=== PATIENT | female | born 1975 | race Caucasian/White ===

== ENCOUNTER 2019-03-01 14:27 | Emergency (ER) | payer BC ==
[2019-03-01 14:47] VITALS: BP 123/47
--- NOTE | 2019-03-01 15:00 | ED ---
Throat Pain/Nasal Congestion - HPI Summary HPI Summary: 43 yr old with left ear pain for about four days. She feels like the ear is plugged up. She did put over the counter herbal drops in the left ear over the weekend. These seem to irritate it more. No other complaints. - History of Current Complaint Chief Complaint: UCEar Time Seen by Provider: 03/01/19 14:44 - Allergies/Home Medications Allergies/Adverse Reactions: Allergies Allergy/AdvReac Type Severity Reaction Status Date / Time MS Nitrofurantoin Allergy Rash Verified 08/13/15 20:02 [From Macrobid] nitrofurantoin Allergy Rash Verified 03/01/19 14:44 [From Macrobid] Home Medications: Home Medications Ibuprofen 400 mg PO Q8HR PRN 03/01/19 [History Confirmed 03/01/19] Oregano Oil [Oil of Oregano] 1,500 mg PO DAILY 03/01/19 [History Confirmed 03/01] PMH/Surg Hx/FS Hx/Imm Hx - Cancer History Hx Chemotherapy: No Hx Radiation Therapy: No - Surgical History Surgery Procedure, Year, and Place: csection. cholecystectomy. surgery for blocked bile duct Infectious Disease History: No Infectious Disease History: Denies: History Other Infectious Disease, Traveled Outside the [place] in Last 30 Days - Family History Known Family History: Positive: None - Social History Occupation: Employed Full-time Alcohol Use: None Substance Use Type: Reports: None Smoking Status (MU): Never Smoked Tobacco Review of Systems Constitutional: Negative Positive: Ear Ache All Other Systems Reviewed And Are Negative: Yes Physical Exam Triage Information Reviewed: Yes Vital Signs On Initial Exam: Initial Vitals Temp Pulse Resp BP Pulse Ox 98.2 F 76 18 123/47 98 03/01/19 14:45 03/01/19 14:45 03/01/19 14:45 03/01/19 14:45 03/01/19 14:45 Vital Signs Reviewed: Yes Appearance: Positive: Well-Appearing, No Pain Distress Skin: Positive: Warm, Skin Color Reflects Adequate Perfusion Head/Face: Positive: Normal Head/Face Inspection Eyes: Positive: EOMI, MJ ENT: Positive: Pharynx normal, TM bulging - left, TM red - left Neck: Positive: Nontender Respiratory/Lung Sounds: Positive: Clear to Auscultation, Breath Sounds Present Cardiovascular: Positive: RRR. Negative: Murmur Abdomen Description: Positive: Nontender Musculoskeletal: Positive: Strength/ROM Intact Neurological: Positive: Sensory/Motor Intact, Alert, Oriented to Person Place, Time, CN Intact II-III Psychiatric: Positive: Normal Diagnostics - Vital Signs Vital Signs Temp Pulse Resp BP Pulse Ox 03/01/19 14:45 98.2 F 76 18 123/47 98 - Laboratory Lab Statement: Any lab studies that have been ordered have been reviewed, and results considered in the medical decision making process. EENT Course/Dx - Course Course Of Treatment: 43 yr old with Left OM. DC home on Augmentin - Diagnoses Provider Diagnoses: Left otitis media Discharge - Sign-Out/Discharge Documenting (check all that apply): Patient Departure All imaging exams completed and their final reports reviewed: No Studies - Discharge Plan Condition: Good Disposition: HOME Prescriptions: Amoxicillin/Clavulanate TAB* [Augmentin TAB 875*] 875 mg PO BID #20 tab Patient Education Materials: Ear Infection (ED) Referrals: Gui Randle MD [Primary Care Provider] - - Billing Disposition and Condition Condition: GOOD Disposition: Home
== END 2019-03-01 15:00 | disposition home or self-care (01) ==
LOC: UCEAST 14:27
DX: H66.92 Otitis media, unspecified, left ear (principal); Z88.1 Allergy status to other antibiotic agents
CPT/HCPCS: 99202; G0463

== ENCOUNTER 2023-10-02 10:16 | Observation (INO) ==
[~2023-10-02 10:16] MED LIST: Naloxone 0.4 mg VIAL 0.4 mg/ml 1 ml VIAL IV PUSH PRN
[2023-10-02] MEDS ORDERED: Ondansetron 4 mg VIAL 2 MG/ML 2 ml VIAL ONE (10:28)
[2023-10-02] MEDS ORDERED: Clindamycin 900 MG/50 **NS BAG 900 MG/50 ML BAG IV ONE (10:30)
[2023-10-02] MEDS ORDERED: Scopolamine 1 mg/72hr PATCH ONE (10:53)
[2023-10-02] MEDS ORDERED: oxyCODONE SR 10 mg TAB ONE (10:53)
[2023-10-02] MEDS ORDERED: Dexamethasone Oral Solution 1 MG/ML 10 ML UDC (10 MG) PO ONE (11:00)
[2023-10-02 11:12] LABS: Activated Partial Thrombo Time 27.7 seconds (26.0-38.0); INR 0.99 (0.83-1.13)
[2023-10-02 11:20] LABS: Anion Gap 9 mmol/L (2-16); Blood Urea Nitrogen 14 mg/dL (6-24); CO2 Carbon Dioxide 24 mmol/L (22-32); Calcium 8.9 mg/dL (8.6-10.3); Chloride 103 mmol/L (101-111); Creatinine, Serum 0.71 mg/dL (0.51-0.95); Glucose 109 mg/dL (70-100); Potassium 3.6 mmol/L (3.5-5.0); Sodium 136 mmol/L (135-145); eGFR CKD-EPI 104.2 (>60)
[2023-10-02 11:21] LABS: ABS Lymphocytes 1.8 10^3/uL (1.0-4.8); ABS Monocytes 0.5 10^3/uL (0.0-0.9); ABS Neutrophils 8.1 10^3/uL (1.5-7.6); Eosinophil % 0.3 %; Hemoglobin 13.6 g/dL (11.5-14.3); Mean Corpuscular Hemoglobin 28.4 pg (27-33); Mean Corpuscular Volume 83.5 fL (80-97); Mean Platelet Volume 6.8 fL (7.5-11.2); Platelet Count 321 10^3/uL (150-450); Red Blood Count 4.79 10^6/uL (3.63-4.92); Red Cell Distribution Width 15.2 % (12-17); White Blood Count 10.4 10^3/uL (3.8-11.8)
[2023-10-02 11:24] LABS: HCG Pregnancy < 0.60 mIU/mL
[2023-10-02] MEDS ORDERED: Lidocaine 1% VIAL 10 MG/ML 30 ML VIAL ONE (11:33)
[2023-10-02] MEDS ORDERED: Iohexol 350 (CONTRAST) 100 ML PAK IV ONE ×2 (11:33→12:46)
[2023-10-02] MEDS ORDERED: Heparin 2 UNITS/ML IVPREMIX 3,000 UNIT/1,500 ML BAG IV ONE (11:33)
[2023-10-02] MEDS ORDERED: nitroGLYCERIN DRIP 25,000 MCG/250 ML BTL ONE (11:34)
[2023-10-02] MEDS ORDERED: fentaNYL 100 mcg/2 ml 50 MCG/ML VIAL ONE (11:42)
[2023-10-02] MEDS ORDERED: Midazolam 5 mg/5 ml VIAL 1 mg/ml 5 ml VIAL (5 mg) ONE (11:42)
[2023-10-02] MEDS ORDERED: Prochlorperazine 5 mg/ml 2 ml VIAL (10 mg) ONE ×2 (13:16→14:08)
[2023-10-02] MEDS ORDERED: HYDROmorphone PCA 20 MG/20 ML PCA.SYRING PCA SCH (13:30)
[2023-10-02] MEDS: NS 0.9% 1,000 ML IV SCH ×2 (14:00→20:44)
[2023-10-02] MEDS ORDERED: Prochlorperazine 5 mg/ml 2 ml VIAL (10 mg) IV PRN (14:29)
[2023-10-02] MEDS: Ondansetron 4 mg VIAL 2 MG/ML 2 ml VIAL IV SCH (18:42)
[2023-10-03] MEDS: Ondansetron 4 mg VIAL 2 MG/ML 2 ml VIAL IV SCH ×2 (00:54→07:41)
[2023-10-03] MEDS ORDERED: HYDROcodone/ACETAMIN 5/325 mg TAB PO PRN ×2 (07:54→08:06)
[2023-10-03] MEDS ORDERED: Ketorolac 10 mg TAB (NF) PO SCH (08:00)
[2023-10-03 09:45] VITALS: BP 123/73
== END 2023-10-03 10:45 | disposition home or self-care (01) ==
LOC: SSU 10:16 → CHICATH 10:16
PROVIDERS: ADMIT Radiology Diagnostic Radiology; ATTEND Radiology Diagnostic Radiology
PROC: ANG.UFE (2023-10-02 12:10)